=== PATIENT | female | born 1960 | race Caucasian/White ===

== ENCOUNTER → 2020-06-01 | Outpatient (CLI) | payer BC ==
[~2020-06-01] VITALS: Ht 167.6 cm; Wt 59.0 kg
[~2020-06-01] MED LIST: DICLOFENAC SOD50 M1 PO; RINVOQ ER15 MG PO; TRAMADOL 50 MG50 MG PO
--- NOTE | ~2020-06-01 | HPC ---
[facility] [address] [place] [address] PAIN MANAGEMENT CONSULTATION Name: JOANN ANTON Room #: REG MIGUELINA Da Silva.#: [id number] Admission: 06/01/20 Attend Phys: Armand Banks MD Discharge: Date of : 62 Report #: [id number] CC: Physician staff Armand Tripathi MD DATE OF SERVICE: 06/01/2020 CHIEF COMPLAINT: Low back pain with radiation through the left leg and buttock, right leg to the calf. I am seeing this patient today at the request of Dr. Pierre Tripathi for evaluation of lumbar radiculopathy. She was diagnosed with rheumatoid arthritis in 2014 and has been seeing Dr. Tripathi for treatments. She has medications currently that have been helpful. She is on ____ and diclofenac and has found that to be a fairly good combination of decreasing some of her joint aches and pains. She began experiencing pain in February in her low back, sharp that then began to radiate into both legs. She has some numbness in her right leg as well. Pain is intense as 7/10 and sometimes it is so bad she scores it as a 10/10. Multi-descriptors utilized sharp, stabbing, tender, transient, cramping, aching, burning. Pain drawing shows pain that radiates through the L3-L4 and L4-L5 distribution. She also has some S1 distribution pain through the back of her legs bilaterally. It is associated with pins and needles sensation and burning. An MRI was performed on 05/24/2020 and I was able to review it today. It shows severe degenerative changes at several levels. There is bulging of L3-L4 with severe bilateral facet arthropathy and a grade 1 anterolisthesis creating severe spinal stenosis. There is also mild right and moderate left foraminal stenosis. At L4-L5, a similar degenerative situation is seen along with an anterolisthesis at L4 on L5 creating additional stenosis, severe on the right and moderate on the left foraminal stenosis. At L5-S1, this stenosis is not quite as bad, but she has again facet arthropathy. MEDICATIONS: ____, diclofenac, and she uses a tramadol at bedtime. ALLERGIES: None. PAST MEDICAL HISTORY: She has been in exceptionally good health except for the rheumatoid arthritis and then increasing back pain. SOCIAL HISTORY: She has not worked outside of the home in the last 30 years. She denies use of tobacco. She enjoys alcohol once or twice a week in a social setting. Her opioid risk tool score is 0. Her functional assessment score, however, is 51/70 suggesting fairly dramatic impacts of her pain on day-to-day activities including walking, sleep, general activities, and mood. PHYSICAL EXAMINATION: GENERAL: She is very pleasant, outgoing 60-year-old. VITAL SIGNS: Blood pressure is 165/81, heart rate 96, respirations 16, O2 sat 100, pain intensity 7/10. She can move independently from sitting to standing position, her gait is only mildly antalgic. CHEST: Clear. CARDIAC: Rhythm is regular. MUSCULOSKELETAL: Reveals some tenderness across the low back. She has mild pain with back extension, lateral tilt and rotation. Nothing dramatic there. She has some relief actually when flexion. Straight leg raising is negative for pain in the sitting position and in the supine. Sensation is normal. No loss of strength. Deep tendon reflexes are 2+ at the knees and trace at the ankles. IMPRESSION: Severe spinal stenosis at 2 levels, particularly L3-L4 and L4-L5. Anterolisthesis of L4 on L5 and L3 on L4. Multilevel bilateral facet arthropathy. RECOMMENDATION: She very much likes to avoid surgery. With multiple pain generators including spinal stenosis, consideration of epidural injection was raised. Today, I think it is a decent option to provide pain relief at this point in time. We discussed returning to the bicycle, which is her preferred activity. Flexion in a spinning bike can sometimes provide opening of the canal and improvement. She is young with fairly significant spinal stenosis. Predictions of surgery are difficult as we have seen many patients who have been able to avoid surgery despite fairly dramatic x-ray findings. Symptoms will guide her going forward. A decompressive laminectomy might be necessary and if it is performed at a couple of levels, she will end up with a fusion and I do not think she wants that at this stage. We remain optimistic that additional treatments may become available of noninvasive type for patients with spinal stenosis. Minimally invasive lumbar decompression or MILD through FONU2 has been helpful, but is currently utilized mostly for patients without listhesis and at single levels. Other techniques are gaining traction. We will see if she ultimately is a candidate for a minimally invasive procedure. For now, we would like to manage her symptoms. An epidural injection scheduled for a followup visit. I believe the injection should be at L3-L4 or L4-L5 with intent to cover both levels. Questions were answered and she was discharged with a followup visit. By: [id number] Armand Banks MD /nt
[2020-06-01 08:55] VITALS: BP 165/81
--- NOTE | 2020-06-01 08:59 | NUR ---
Pain Clinic Assessment: 1. History of Osteoarthritis: knees History of Rheumatoid Arthritis: all over 2. Height: 5 ft. 6 in. 167.6 cm. Weight: 130.0 lb. oz. 58.968 kg. Patient's BMI: 21.0 3. Vital Signs: BP: 165/81 Pulse: 96 Resp: 16 Temp: 02 Sat: 100 ECG Mon: 4. Pain Intensity: 7 5. Fall Risk: Dizziness: N Needs help standing or walking: N Fallen in the last 3 months: N Fall risk comments: 6. Patient on Blood Thinner: 7. History of Hypertension: N 8. Opioid Therapy greater than 6 weeks: N Opiate Contract Signed: 9. Risk Assessment Tool Provided: 0 10. Functional Assessment Tool: 11. Recreational Drug Use: Never Drug Type: Tobacco Use: Never Smoker Tobacco Type: Amount or Packs/day: How Many Years: Alcohol Use: Yes Frequency: Weekly Quant: 2
== END ==
LOC: PAIN 06:41
PROVIDERS: ATTEND Anesthesiology Pain Medicine
DX: M48.061 Spinal stenosis, lumbar region without neurogenic claudication (principal); Z79.899 Other long term (current) drug therapy

== ENCOUNTER → 2020-06-05 | Outpatient (CLI) | payer BC ==
[~2020-06-05] VITALS: Ht 167.6 cm; Wt 59.0 kg
--- NOTE | ~2020-06-05 | HPC ---
[address] [place] [address] PAIN MANAGEMENT CONSULTATION Name: JOANN ANTON Room #: REG MIGUELINA Rekha.#: [id number] Admission: 06/05/20 Attend Phys: Armand Banks MD Discharge: Date of : 62 Report #: [id number] CC: Physician staff Armand FRANCE DATE OF SERVICE: 06/05/2020 Followup visit for epidural injection for spinal stenosis to level L3-4, L4-5 with anterolisthesis each level. The patient returns to pain clinic today for an epidural injection. We reviewed the procedure, discussed potential risks and benefits. She is anxious to proceed. PROCEDURE: L4-5 epidural injection under fluoroscopic guidance. After informed consent, she was taken to fluoroscopic suite, placed prone, skin prepped with ChloraPrep. Skin anesthetized over L4-5. A 20-gauge Tuohy epidural needle advanced in the epidural space in the first attempt using loss of resistance. There was no blood or CSF aspirated. A 1 mL of Omnipaque was injected and excellent spread of dye was seen extending cephalad towards the L3-L4 anterolisthesis and in the epidural space. It was then followed by 3 mL of 0.5% lidocaine mixed with 80 mg of triamcinolone. She tolerated the procedure well. There were no complications. Followup visit planned as needed. We will see her back in the pain clinic perhaps in 1-2 months for repeat injection if necessary. By: [id number] Armand Banks MD /george
[2020-06-05 13:17] VITALS: BP 149/86
--- NOTE | 2020-06-05 13:25 | NUR ---
Pain Clinic Assessment: 1. History of Osteoarthritis: knees History of Rheumatoid Arthritis: all over 2. Height: 5 ft. 6 in. 167.6 cm. Weight: 130.0 lb. oz. 58.968 kg. Patient's BMI: 21.0 3. Vital Signs: BP: 149/86 Pulse: 93 Resp: 14 Temp: 02 Sat: 100 ECG Mon: 4. Pain Intensity: 8 5. Fall Risk: Dizziness: N Needs help standing or walking: N Fallen in the last 3 months: N Fall risk comments: 6. Patient on Blood Thinner: None 7. History of Hypertension: N 8. Opioid Therapy greater than 6 weeks: N Opiate Contract Signed: 9. Risk Assessment Tool Provided: 0 10. Functional Assessment Tool: 11. Recreational Drug Use: Never Drug Type: Tobacco Use: Never Smoker Tobacco Type: Amount or Packs/day: How Many Years: Alcohol Use: Yes Frequency: Quant:
== END | disposition home or self-care (01) ==
LOC: PAIN 07:10
PROVIDERS: ATTEND Anesthesiology Pain Medicine
DX: M48.061 Spinal stenosis, lumbar region without neurogenic claudication (principal); M43.12 Spondylolisthesis, cervical region; Z79.899 Other long term (current) drug therapy

== ENCOUNTER → 2020-09-21 | Outpatient (CLI) | payer BC, OTHER ==
[~2020-09-21] VITALS: Ht 167.6 cm; Wt 61.7 kg
[~2020-09-21] MED LIST changes: +TYLENOL EXTRA500 MG PO
[2020-09-21 11:26] VITALS: BP 128/86
--- NOTE | 2020-09-21 11:45 | NUR ---
Pain Clinic Assessment: 1. History of Osteoarthritis: knees History of Rheumatoid Arthritis: YES 2. Height: 5 ft. 6 in. 167.6 cm. Weight: 136.0 lb. oz. 61.689 kg. Patient's BMI: 22.0 3. Vital Signs: BP: 128/86 Pulse: 85 Resp: 14 Temp: 02 Sat: 100 ECG Mon: 4. Pain Intensity: 2 SIT 6 WALK 5. Fall Risk: Dizziness: N Needs help standing or walking: N Fallen in the last 3 months: N Fall risk comments: 6. Patient on Blood Thinner: None 7. History of Hypertension: N 8. Opioid Therapy greater than 6 weeks: N Opiate Contract Signed: 9. Risk Assessment Tool Provided: 0 10. Functional Assessment Tool: 48 11. Recreational Drug Use: Never Drug Type: Tobacco Use: Never Smoker Tobacco Type: Amount or Packs/day: How Many Years: Alcohol Use: Yes Frequency: Monthly Quant:
== END | disposition home or self-care (01) ==
LOC: PAIN 06:52
PROVIDERS: ATTEND Anesthesiology Pain Medicine
DX: M54.16 Radiculopathy, lumbar region (principal); M48.062 Spinal stenosis, lumbar region with neurogenic claudication; G89.29 Other chronic pain; M17.0 Bilateral primary osteoarthritis of knee; Z98.890 Other specified postprocedural states

== ENCOUNTER → 2020-12-11 | Outpatient (CLI) | payer BC, OTHER ==
[~2020-12-11] VITALS: Ht 167.6 cm; Wt 60.9 kg
[~2020-12-11] MED LIST changes: +PREDNISONE 10 M10 MG PO
[2020-12-11 09:06] VITALS: BP 123/86
--- NOTE | 2020-12-11 09:11 | NUR ---
Pain Clinic Assessment: 1. History of Osteoarthritis: knees History of Rheumatoid Arthritis: YES 2. Height: 5 ft. 6 in. 167.6 cm. Weight: 134.2 lb. oz. 60.873 kg. Patient's BMI: 21.7 3. Vital Signs: BP: 123/86 Pulse: 81 Resp: 18 Temp: 02 Sat: 98 ECG Mon: 4. Pain Intensity: 2 SIT 6 WALK 5. Fall Risk: Dizziness: N Needs help standing or walking: N Fallen in the last 3 months: N Fall risk comments: 6. Patient on Blood Thinner: None 7. History of Hypertension: N 8. Opioid Therapy greater than 6 weeks: N Opiate Contract Signed: 9. Risk Assessment Tool Provided: 0 10. Functional Assessment Tool: 48 11. Recreational Drug Use: Never Drug Type: Tobacco Use: Never Smoker Tobacco Type: Amount or Packs/day: How Many Years: Alcohol Use: Yes Frequency: Quant:
== END | disposition home or self-care (01) ==
LOC: PAIN 07:06
PROVIDERS: ATTEND Anesthesiology Pain Medicine
DX: M51.16 Intervertebral disc disorders with radiculopathy, lumbar region (principal); M48.061 Spinal stenosis, lumbar region without neurogenic claudication; M43.16 Spondylolisthesis, lumbar region; M06.9 Rheumatoid arthritis, unspecified; Z98.890 Other specified postprocedural states; Z79.899 Other long term (current) drug therapy

== ENCOUNTER → 2021-03-12 | Outpatient (CLI) | payer BC, OTHER ==
[~2021-03-12] VITALS: Ht 167.6 cm; Wt 60.7 kg
[2021-03-12 09:42] VITALS: BP 137/88
--- NOTE | 2021-03-12 10:01 | NUR ---
Pain Clinic Assessment: 1. History of Osteoarthritis: knees History of Rheumatoid Arthritis: YES 2. Height: 5 ft. 6 in. 167.6 cm. Weight: 133.8 lb. oz. 60.691 kg. Patient's BMI: 21.6 3. Vital Signs: BP: 137/88 Pulse: 84 Resp: 14 Temp: 02 Sat: 97 ECG Mon: 4. Pain Intensity: 8 5. Fall Risk: Dizziness: N Needs help standing or walking: N Fallen in the last 3 months: N Fall risk comments: 6. Patient on Blood Thinner: None 7. History of Hypertension: N 8. Opioid Therapy greater than 6 weeks: N Opiate Contract Signed: 9. Risk Assessment Tool Provided: 0 10. Functional Assessment Tool: 48 11. Recreational Drug Use: Never Drug Type: Tobacco Use: Never Smoker Tobacco Type: Amount or Packs/day: How Many Years: Alcohol Use: Yes Frequency: Quant:
== END | disposition home or self-care (01) ==
LOC: PAIN 07:08
PROVIDERS: ATTEND Anesthesiology Pain Medicine
DX: M47.26 Other spondylosis with radiculopathy, lumbar region (principal); M48.061 Spinal stenosis, lumbar region without neurogenic claudication; M43.16 Spondylolisthesis, lumbar region; M06.9 Rheumatoid arthritis, unspecified; Z98.890 Other specified postprocedural states; Z79.899 Other long term (current) drug therapy

== ENCOUNTER → 2021-06-11 | Outpatient (CLI) | payer BC, OTHER ==
[~2021-06-11] VITALS: Ht 167.6 cm; Wt 60.5 kg
[~2021-06-11] MED LIST changes: +PREDNISONE 5 MG5 MG PO
[2021-06-11 09:01] VITALS: BP 152/74
--- NOTE | 2021-06-11 09:16 | NUR ---
Pain Clinic Assessment: 1. History of Osteoarthritis: knees History of Rheumatoid Arthritis: YES 2. Height: 5 ft. 6 in. 167.6 cm. Weight: 133.4 lb. oz. 60.510 kg. Patient's BMI: 21.5 3. Vital Signs: BP: 152/74 Pulse: 82 Resp: 14 Temp: 02 Sat: 100 ECG Mon: 4. Pain Intensity: 8 5. Fall Risk: Dizziness: N Needs help standing or walking: N Fallen in the last 3 months: N Fall risk comments: 6. Patient on Blood Thinner: None 7. History of Hypertension: N 8. Opioid Therapy greater than 6 weeks: N Opiate Contract Signed: 9. Risk Assessment Tool Provided: 0 10. Functional Assessment Tool: 11. Recreational Drug Use: Never Drug Type: Tobacco Use: Never Smoker Tobacco Type: Amount or Packs/day: How Many Years: Alcohol Use: Yes Frequency: Weekly Quant: 3
== END ==
LOC: PAIN 06-09 07:17
PROVIDERS: ATTEND Anesthesiology Pain Medicine
DX: M54.16 Radiculopathy, lumbar region (principal); M48.061 Spinal stenosis, lumbar region without neurogenic claudication; G89.29 Other chronic pain; M43.16 Spondylolisthesis, lumbar region; M19.90 Unspecified osteoarthritis, unspecified site; Z72.89 Other problems related to lifestyle; Z79.899 Other long term (current) drug therapy

== ENCOUNTER → 2021-07-23 | Outpatient (CLI) | payer BC, OTHER ==
[~2021-07-23] VITALS: Ht 167.6 cm; Wt 61.2 kg
[2021-07-23 13:49] VITALS: BP 139/95
--- NOTE | 2021-07-23 13:59 | NUR ---
Pain Clinic Assessment: 1. History of Osteoarthritis: knees History of Rheumatoid Arthritis: YES 2. Height: 5 ft. 6 in. 167.6 cm. Weight: 135.0 lb. oz. 61.236 kg. Patient's BMI: 21.8 3. Vital Signs: BP: 139/95 Pulse: 76 Resp: 14 Temp: 02 Sat: 100 ECG Mon: 4. Pain Intensity: 9 5. Fall Risk: Dizziness: N Needs help standing or walking: N Fallen in the last 3 months: N Fall risk comments: 6. Patient on Blood Thinner: None 7. History of Hypertension: N 8. Opioid Therapy greater than 6 weeks: N Opiate Contract Signed: 9. Risk Assessment Tool Provided: 0 10. Functional Assessment Tool: 11. Recreational Drug Use: Never Drug Type: Tobacco Use: Never Smoker Tobacco Type: Amount or Packs/day: How Many Years: Alcohol Use: Yes Frequency: Quant:
== END | disposition home or self-care (01) ==
LOC: PAIN 10:44
PROVIDERS: ATTEND Anesthesiology Pain Medicine
DX: M54.16 Radiculopathy, lumbar region (principal); M48.061 Spinal stenosis, lumbar region without neurogenic claudication; G89.29 Other chronic pain; Z98.890 Other specified postprocedural states; Z79.899 Other long term (current) drug therapy

== ENCOUNTER → 2021-10-08 | Outpatient (CLI) | payer BC, OTHER ==
[~2021-10-08] VITALS: Ht 167.6 cm; Wt 62.2 kg
[~2021-10-08] MED LIST changes: +NEURONTIN100 MG PO; +NEURONTIN800 MG PO
[2021-10-08 09:02] VITALS: BP 150/83
--- NOTE | 2021-10-08 09:14 | NUR ---
Pain Clinic Assessment: 1. History of Osteoarthritis: knees History of Rheumatoid Arthritis: YES 2. Height: 5 ft. 6 in. 167.6 cm. Weight: 137.2 lb. oz. 62.233 kg. Patient's BMI: 22.2 3. Vital Signs: BP: 150/83 Pulse: 73 Resp: 16 Temp: 02 Sat: 100 ECG Mon: 4. Pain Intensity: 9 5. Fall Risk: Dizziness: N Needs help standing or walking: N Fallen in the last 3 months: N Fall risk comments: 6. Patient on Blood Thinner: None 7. History of Hypertension: N 8. Opioid Therapy greater than 6 weeks: N Opiate Contract Signed: 9. Risk Assessment Tool Provided: 0 10. Functional Assessment Tool: 11. Recreational Drug Use: Never Drug Type: Tobacco Use: Never Smoker Tobacco Type: Amount or Packs/day: How Many Years: Alcohol Use: Yes Frequency: Weekly Quant: 2
== END | disposition home or self-care (01) ==
LOC: PAIN 06:50
PROVIDERS: ATTEND Anesthesiology Pain Medicine
DX: M54.16 Radiculopathy, lumbar region (principal); M48.062 Spinal stenosis, lumbar region with neurogenic claudication; M47.896 Other spondylosis, lumbar region; M43.16 Spondylolisthesis, lumbar region; G89.29 Other chronic pain; M06.9 Rheumatoid arthritis, unspecified; Z98.890 Other specified postprocedural states; Z79.899 Other long term (current) drug therapy